=== PATIENT | female | born 1985 | race Caucasian/White ===

== ENCOUNTER → 2016-06-04 | Outpatient (CLI) | payer OTHER ==
[2016-06-04 16:51] LABS: HEMOGLOBIN 14.5 gm/dl (12.3-15.3); RED BLOOD COUNT 4.68 M/UL (4.00-5.10)
== END ==
LOC: LAB 15:57
PROVIDERS: Podiatrist Foot & Ankle Surgery
DX: M19.91 Primary osteoarthritis, unspecified site (principal); I73.00 Raynaud's syndrome without gangrene
CPT/HCPCS: 36415; 82565; 82947; 84443; 85027; 85610; 85730; 86039

== ENCOUNTER → 2020-04-24 | Outpatient (CLI) | payer BC, OTHER | LOC: KOH-I 13:30 | DX: M25.561 Pain in right knee (principal); M25.562 Pain in left knee; M25.461 Effusion, right knee; M25.462 Effusion, left knee; R93.6 Abnormal findings on diagnostic imaging of limbs | CPT/HCPCS: 73564 ==

== ENCOUNTER → 2020-05-08 | Outpatient (CLI) | payer BC, OTHER | LOC: KOH-I 16:36 | DX: M79.672 Pain in left foot (principal); M77.8 Other enthesopathies, not elsewhere classified; M19.072 Primary osteoarthritis, left ankle and foot | CPT/HCPCS: 73630 ==

== ENCOUNTER → 2020-06-05 | Outpatient (CLI) | payer BC, OTHER | LOC: KOH-I 16:19 | DX: S92.402A Displaced unspecified fracture of left great toe, initial encounter for closed fracture (principal); M19.072 Primary osteoarthritis, left ankle and foot | CPT/HCPCS: 73630 ==

== ENCOUNTER → 2020-06-06 | Outpatient (CLI) | payer BC, OTHER | LOC: KOH-I 15:17 | DX: M54.16 Radiculopathy, lumbar region (principal) | CPT/HCPCS: 72148 ==